=== PATIENT | female | born 1945 | race Native Hawaiian/Other Pacific Islander ===

== ENCOUNTER 2020-05-05 14:30 | Inpatient (IN) | payer OTHER ==
[~2020-05-05] VITALS: Ht 162.6 cm; Wt 68.2 kg
[2020-05-05 16:30] VITALS: BP 120/59; TEMP 99.1; Ht 162.6 cm; Wt 68.2 kg
[2020-05-05 18:08] LABS: PLATELET COUNT 153 K/uL (152-353)
[2020-05-05 18:42] LABS: POTASSIUM 3.9 mmol/L (3.6-5.2)
[2020-05-05 20:00] VITALS: BP 133/51; TEMP 101.3
[2020-05-06] VITALS: BP 121/56; TEMP 102.3
[2020-05-06] MEDS ORDERED: VENLAFAXINE100 MG PO (00:42)
[2020-05-06] MEDS ORDERED: ALPR0.2566 PO (00:44)
[2020-05-06] MEDS ORDERED: CELEBREX200 MG PO (00:45)
[2020-05-06] MEDS ORDERED: AMBIEN5 MG PO (00:47)
[2020-05-06] MEDS ORDERED: CARB25TA29 PO (00:49)
[2020-05-06] MEDS ORDERED: BONIVA150 MG PO (00:51)
[2020-05-06] MEDS ORDERED: PREVACID15 MG PO (00:54)
[2020-05-06 04:00] VITALS: BP 98/52; TEMP 98.7
[2020-05-06 12:00] VITALS: BP 113/45; TEMP 99.7
[2020-05-06 13:42] LABS: PLATELET COUNT 152 K/uL (152-353)
[2020-05-06 14:10] LABS: POTASSIUM 4.5 mmol/L (3.6-5.2)
[2020-05-06 16:00] VITALS: BP 103/35; TEMP 101.2
[2020-05-06 20:00] VITALS: BP 99/44; TEMP 98.7
[2020-05-06 23:59] VITALS: BP 109/47; TEMP 98.8
[2020-05-07 04:00] VITALS: BP 106/52; TEMP 98.9
[2020-05-07 05:47] LABS: PLATELET COUNT 143 K/uL (152-353)
[2020-05-07 06:20] LABS: POTASSIUM 4.2 mmol/L (3.6-5.2)
[2020-05-07 08:00] VITALS: BP 110/45; TEMP 98.7
[2020-05-07 12:00] VITALS: BP 98/52; TEMP 98.7
[2020-05-07 16:00] VITALS: BP 114/56; TEMP 98.5
[2020-05-07 20:00] VITALS: BP 119/60; TEMP 98.9
[2020-05-08] VITALS (10 sets, daily range): BP systolic 108–137; BP diastolic 45–84; TEMP 98.1–98.9
[2020-05-08 06:01] LABS: PLATELET COUNT 162 K/uL (152-353)
[2020-05-08 06:18] LABS: POTASSIUM 4.2 mmol/L (3.6-5.2)
[2020-05-09] VITALS (10 sets, daily range): BP systolic 114–136; BP diastolic 54–78; TEMP 98.1–99
[2020-05-09 06:02] LABS: PLATELET COUNT 191 K/uL (152-353)
[2020-05-09 07:21] LABS: POTASSIUM 3.7 mmol/L (3.6-5.2)
[2020-05-10] VITALS (25 sets, daily range): BP systolic 115–178; BP diastolic 52–94; TEMP 97.9–98.9
[2020-05-10 05:22] LABS: PLATELET COUNT 227 K/uL (152-353)
[2020-05-10 06:00] LABS: POTASSIUM 3.7 mmol/L (3.6-5.2)
== END 2020-05-10 20:56 | disposition short-term general hospital (02) | DRG 208 ==
LOC: MED/SURG 14:30 → ICU 05-09 18:00
PROVIDERS: ADMIT Family Medicine
PROC: 30233K1 Transfusion of Nonautologous Frozen Plasma into Peripheral Vein, Percutaneous Approach (ICD-10-PCS; 2020-05-08)
PROC: 5A1935Z Respiratory Ventilation, Less than 24 Consecutive Hours (ICD-10-PCS; principal; 2020-05-10)
PROC: 0BH17EZ Insertion of Endotracheal Airway into Trachea, Via Natural or Artificial Opening (ICD-10-PCS; 2020-05-10)
PROC: 30233K1 Transfusion of Nonautologous Frozen Plasma into Peripheral Vein, Percutaneous Approach (ICD-10-PCS; 2020-05-10)
PROC: 0D9670Z Drainage of Stomach with Drainage Device, Via Natural or Artificial Opening (ICD-10-PCS; 2020-05-10)
DX: U07.1 COVID-19 (principal); J18.8 Other pneumonia, unspecified organism; J96.01 Acute respiratory failure with hypoxia; E43 Unspecified severe protein-calorie malnutrition; E87.1 Hypo-osmolality and hyponatremia; F43.10 Post-traumatic stress disorder, unspecified; M81.8 Other osteoporosis without current pathological fracture; G89.29 Other chronic pain; R33.8 Other retention of urine; E87.8 Other disorders of electrolyte and fluid balance, not elsewhere classified; J44.9 Chronic obstructive pulmonary disease, unspecified; D72.818 Other decreased white blood cell count
CPT/HCPCS: 31500; 36415; 36600; 80053; 82728; 82805; 83735; 83880; 84100; 85027; 85379; 86140; 86850; 86900; 86901; 87040; 93005; 94003; 94667; 94668; 94760; J0456; J0696; J1100; J1200; J1650; J1885; J1940; J2060; J2250; J2270; J2405; J3475; J3490; P9017

== ENCOUNTER 2021-05-18 10:28 | Outpatient (CLI) | payer OTHER ==
[~2021-05-18 10:28] MED LIST: ALPR0.2566 PO; AMBIEN5 MG PO; BONIVA150 MG PO; CARB25TA29 PO; CELEBREX200 MG PO; PREVACID15 MG PO; VENLAFAXINE100 MG PO
== END 2021-05-18 18:59 | disposition home or self-care (01) ==
LOC: LABW 10:28
PROVIDERS: ATTEND Nurse Practitioner Family
DX: Z01.419 Encounter for gynecological examination (general) (routine) without abnormal findings (principal); E53.8 Deficiency of other specified B group vitamins; E55.9 Vitamin D deficiency, unspecified; E78.49 Other hyperlipidemia; M54.50 Low back pain, unspecified; R82.998 Other abnormal findings in urine
CPT/HCPCS: 36415; 80053; 80061; 82607; 82746; 84439; 84443; 87086; 87088

== ENCOUNTER 2021-05-31 10:11 | Outpatient (CLI) | payer OTHER | END 2021-05-31 20:37 | disposition home or self-care (01) | LOC: CT 10:11 | PROVIDERS: ATTEND Nurse Practitioner Family | DX: R09.89 Other specified symptoms and signs involving the circulatory and respiratory systems (principal); K38.8 Other specified diseases of appendix | CPT/HCPCS: Q9963 ==

== ENCOUNTER 2022-01-19 14:01 | Outpatient (CLI) | payer OTHER ==
[~2022-01-19] VITALS: Ht 162.6 cm; Wt 79.4 kg
[2022-01-19 14:35] VITALS: BP 131/62; TEMP 98
[2022-01-19 16:04] VITALS: BP 119/62; TEMP 98.4
[2022-01-19 16:22] VITALS: BP 117/54; TEMP 98.1
== END 2022-01-19 20:01 | disposition home or self-care (01) ==
LOC: INF 14:01
PROVIDERS: ATTEND Family Medicine
DX: Z20.822 Contact with and (suspected) exposure to COVID-19 (principal)
CPT/HCPCS: 96374; Q0222

== ENCOUNTER 2023-03-05 15:53 | Outpatient (CLI) | payer OTHER ==
[2023-03-05 16:20] LABS: POTASSIUM 4.4 mmol/L (3.6-5.2)
== END 2023-03-05 20:54 | disposition home or self-care (01) ==
LOC: LABW 15:53
PROVIDERS: ATTEND Nurse Practitioner Family
DX: U07.1 COVID-19 (principal)
CPT/HCPCS: 36415; 80053